=== PATIENT | female | born 1955 | race Two or more races ===

== ENCOUNTER 2018-10-28 14:57 | Inpatient (IN) | payer MEDICARE, MEDICAID ==
[~2018-10-28] VITALS: Ht 157.5 cm; Wt 71.9 kg
--- NOTE | 2018-10-28 15:08 | NUR ---
PT RAD GROSS, EMS REPORTSS THAT SHE WAS AT DIALYSIS AND SHE HAD A BOUGHT OF ALTERED MENTAL STATUS WITH AN O2 SAT IN THE 70S. EMS PLACED 4 L NASAL CANNULA AND PT RETURNED TO NORMAL AND O2 SATS IMPROVED. PT IS COMORAN SPEAKING AND HER DAUGHTER IS AT BEDSIDE TRANSLATING. PT IS VISITING FROM [facility].
--- NOTE | 2018-10-28 15:13 | NUR ---
O2 SATS DROP TO 70% WITHOUT OXYGEN
[2018-10-28] MEDS ORDERED: SODIUM CHLORIDE FLUSH 10ML SYR IVF ONE (15:30)
[2018-10-28 15:59] LABS: BASOPHILS # (AUTO) 0.03 x10^3/uL (0-0.1); BASOPHILS % (AUTO) 0 % (0-1); EOSINOPHILS # (AUTO) 0.11 x10^3/uL (0-0.4); EOSINOPHILS % (AUTO) 2 % (1-7); LYMPHOCYTES # (AUTO) 0.99 x10^3/uL (1-3.4); LYMPHOCYTES % (AUTO) 14 % (22-44); MD NO; MEAN CORPUSCULAR HEMOGLOBIN 31.5 pg (27.0-34.8); MEAN CORPUSCULAR HGB CONC 32.4 g/dL (32.4-35.8); MEAN CORPUSCULAR VOLUME 97.3 fL (80-100); MEAN PLATELET VOLUME 9.3 fL (7.4-10.4); MONOCYTES # (AUTO) 0.54 x10^3/uL (0.2-0.8); MONOCYTES % (AUTO) 8 % (2-9); NEUTROPHILS # (AUTO) 5.57 x10^3/uL (1.8-6.8); NEUTROPHILS % (AUTO) 77 % (42-75); PLATELET COUNT 183 x10^3/uL (130-400); RED BLOOD COUNT 2.89 x10^6/uL (3.82-5.3); RED CELL DISTRIBUTION WIDTH 19.4 % (9.6-15.2)
[2018-10-28] MEDS ORDERED: PLEASE ENTER ALLERGIES MC SCH (16:00)
[2018-10-28 16:07] LABS: ANION GAP 10 mmol/L (5-15); CALCIUM 8.6 mg/dL (8.5-10.1); CHLORIDE 94 mmol/L (98-107); CREATININE 6.61 mg/dL (0.55-1.02)
[2018-10-28] MEDS ORDERED: PREG75CA PO (16:09)
[2018-10-28] MEDS ORDERED: ATOR-2 PO (16:09)
[2018-10-28] MEDS ORDERED: SEVE800T8 PO (16:09)
[2018-10-28] MEDS ORDERED: ASPI-496 PO (16:09)
[2018-10-28] MEDS ORDERED: LEVO50TA5 PO (16:09)
[2018-10-28] MEDS ORDERED: HYDR-3343 PO (16:09)
[2018-10-28] MEDS ORDERED: INSU100C5 SQ-INSULIN (16:09)
[2018-10-28] MEDS ORDERED: CLOP75TA PO (16:09)
[2018-10-28] MEDS ORDERED: METO50TA82 PO (16:09)
[2018-10-28] MEDS ORDERED: SODI650T PO (16:09)
[2018-10-28] MEDS ORDERED: NIFE60TA2 PO (16:09)
[2018-10-28] MEDS ORDERED: INSU100I34 SC (16:10)
--- NOTE | 2018-10-28 16:12 | NUR ---
PT RESTING ON FRANK. PT TO BE ADMITED.
--- NOTE | 2018-10-28 17:33 | NUR ---
REPORT GIVEN TO CHANELL TRUONG
[2018-10-28] MEDS ORDERED: ACETAMINOPHEN 325 MG TABLET PO PRN (18:00)
[2018-10-28 18:57] VITALS: BP 115/66
[2018-10-28 19:23] LABS: HEMOGLOBIN A1C 7.7 % (4.2-6.3)
[2018-10-28] MEDS: INSULIN LISPRO 100 UNITS/ML, PEN SQ-INSULIN SCH ×2 (20:27→21:00)
[2018-10-28] MEDS ORDERED: SODIUM BICARBONATE 650 MG TABLET PO SCH (21:00)
[2018-10-28] MEDS: SEVELAMER CARBONATE 800MG TAB PO SCH (21:00)
[2018-10-28] MEDS ORDERED: PREGABALIN 75 MG CAPSULE PO SCH (21:00)
[2018-10-28] MEDS: ATORVASTATIN 80 MG TABLET PO SCH (21:00)
[2018-10-28] MEDS: METOPROLOL TARTRATE 50 MG TABLET PO SCH (21:00)
[2018-10-29 00:27] VITALS: BP 106/64
[2018-10-29 00:54] LABS: CULTURE INDICATED? YES; MICROSCOPIC INDICATED
[2018-10-29] MEDS ORDERED: HEPARIN 5,000 UNITS/ML, 1ML IV ONE (01:00)
[2018-10-29] MEDS: HEPARIN 25,000 UNITS/500ML PMX 500 ML IV PRN (02:02)
[2018-10-29 05:42] LABS: ALANINE AMINOTRANSFERASE 225 U/L (12-78); ALBUMIN 2.8 g/dL (3.4-5.0); ANION GAP 8 mmol/L (5-15); CALCIUM 8.5 mg/dL (8.5-10.1); CHLORIDE 100 mmol/L (98-107); CREATININE 4.62 mg/dL (0.55-1.02)
[2018-10-29 05:46] LABS: BASOPHILS # (AUTO) 0.03 x10^3/uL (0-0.1); BASOPHILS % (AUTO) 1 % (0-1); EOSINOPHILS # (AUTO) 0.21 x10^3/uL (0-0.4); EOSINOPHILS % (AUTO) 3 % (1-7); LYMPHOCYTES # (AUTO) 0.94 x10^3/uL (1-3.4); LYMPHOCYTES % (AUTO) 14 % (22-44); MD NO; MEAN CORPUSCULAR HEMOGLOBIN 31.5 pg (27.0-34.8); MEAN CORPUSCULAR HGB CONC 32.3 g/dL (32.4-35.8); MEAN CORPUSCULAR VOLUME 97.6 fL (80-100); MEAN PLATELET VOLUME 9.6 fL (7.4-10.4); MONOCYTES # (AUTO) 0.59 x10^3/uL (0.2-0.8); MONOCYTES % (AUTO) 9 % (2-9); NEUTROPHILS # (AUTO) 4.78 x10^3/uL (1.8-6.8); NEUTROPHILS % (AUTO) 73 % (42-75); PLATELET COUNT 192 x10^3/uL (130-400); RED BLOOD COUNT 2.76 x10^6/uL (3.82-5.3); RED CELL DISTRIBUTION WIDTH 19.6 % (9.6-15.2)
[2018-10-29 05:52] LABS: ALKALINE PHOSPHATASE 160 U/L (45-117); BILIRUBIN,TOTAL 0.6 mg/dL (0.2-1.0); THYROID STIMULATING HORMONE 0.534 mIU/L (0.358-3.740); TOTAL PROTEIN 7.4 g/dL (6.4-8.2)
[2018-10-29] MEDS: INSULIN LISPRO 100 UNITS/ML, PEN SQ-INSULIN SCH ×4 (07:00→21:09)
[2018-10-29 09:00] VITALS: BP 146/61
[2018-10-29] MEDS: SEVELAMER CARBONATE 800MG TAB PO SCH ×3 (09:00→21:08)
[2018-10-29] MEDS: METOPROLOL TARTRATE 50 MG TABLET PO SCH ×2 (09:00→21:09)
[2018-10-29] MEDS: CLOPIDOGREL 75 MG TABLET PO SCH (09:00)
[2018-10-29] MEDS: HEPARIN 5,000 UNITS/ML, 1ML IV PRN ×3 (09:30→22:58)
[2018-10-29 11:20] VITALS: BP 104/62
[2018-10-29] MEDS: LEVOTHYROXINE 50 MCG TABLET PO SCH (12:30)
[2018-10-29] MEDS: niFEDipine ER 60 MG TABLET.ER PO SCH (12:30)
[2018-10-29] MEDS: ASPIRIN 81 MG TABLET EC PO SCH (12:30)
[2018-10-29] MEDS: PREGABALIN 75 MG CAPSULE PO SCH (12:30)
[2018-10-29 13:10] VITALS: BP 127/70
[2018-10-29] MEDS: CEFTRIAXONE PMX 1GM/50ML 50 ML IV SCH (13:26)
[2018-10-29 19:23] VITALS: BP 114/65
[2018-10-29] MEDS: ATORVASTATIN 80 MG TABLET PO SCH (21:08)
[2018-10-30 00:34] VITALS: BP 110/80
[2018-10-30 05:53] LABS: MEAN CORPUSCULAR HEMOGLOBIN 31.9 pg (27.0-34.8); MEAN CORPUSCULAR HGB CONC 32.7 g/dL (32.4-35.8); MEAN CORPUSCULAR VOLUME 97.7 fL (80-100); MEAN PLATELET VOLUME 9.2 fL (7.4-10.4); PLATELET COUNT 241 x10^3/uL (130-400); RED BLOOD COUNT 2.93 x10^6/uL (3.82-5.3); RED CELL DISTRIBUTION WIDTH 20.4 % (9.6-15.2)
[2018-10-30 06:02] LABS: ALBUMIN 2.7 g/dL (3.4-5.0); ANION GAP 11 mmol/L (5-15); CALCIUM 8.7 mg/dL (8.5-10.1); CHLORIDE 96 mmol/L (98-107)
[2018-10-30 06:03] LABS: CREATININE 5.24 mg/dL (0.55-1.02)
[2018-10-30] MEDS: HEPARIN 5,000 UNITS/ML, 1ML IV PRN ×2 (06:15→13:23)
[2018-10-30] MEDS: LEVOTHYROXINE 50 MCG TABLET PO SCH (06:15)
[2018-10-30] MEDS: HEPARIN 25,000 UNITS/500ML PMX 500 ML IV PRN (06:17)
[2018-10-30 06:37] LABS: ANISOCYTOSIS 1+; BASOPHILS # (AUTO) 0.03 x10^3/uL (0-0.1); BASOPHILS % (AUTO) 0 % (0-1); EOSINOPHILS # (AUTO) 0.26 x10^3/uL (0-0.4); EOSINOPHILS % (AUTO) 4 % (1-7); LYMPHOCYTES % (AUTO) 16 % (22-44); MD MORPH REVIEW ONLY; MONOCYTES # (AUTO) 0.66 x10^3/uL (0.2-0.8); MONOCYTES % (AUTO) 10 % (2-9); NEUTROPHILS # (AUTO) 4.78 x10^3/uL (1.8-6.8); NEUTROPHILS % (AUTO) 70 % (42-75); POLYCHROMASIA 1+
[2018-10-30 06:39] LABS: <PLATELET ESTIMATE> ADEQUATE; <PLT MORPHOLOGY> NORMAL PLT MORPH
[2018-10-30 08:27] VITALS: BP 106/63
[2018-10-30] MEDS: INSULIN LISPRO 100 UNITS/ML, PEN SQ-INSULIN SCH ×4 (08:30→20:33)
[2018-10-30] MEDS: METOPROLOL TARTRATE 50 MG TABLET PO SCH ×2 (08:58→20:29)
[2018-10-30] MEDS: ASPIRIN 81 MG TABLET EC PO SCH (08:58)
[2018-10-30] MEDS: niFEDipine ER 60 MG TABLET.ER PO SCH (08:58)
[2018-10-30] MEDS: PREGABALIN 75 MG CAPSULE PO SCH (08:58)
[2018-10-30] MEDS: SEVELAMER CARBONATE 800MG TAB PO SCH ×2 (08:58→16:59)
[2018-10-30] MEDS: CLOPIDOGREL 75 MG TABLET PO SCH (08:58)
[2018-10-30] MEDS: CEFTRIAXONE PMX 1GM/50ML 50 ML IV SCH (11:30)
[2018-10-30 12:50] VITALS: BP 101/58
[2018-10-30 19:19] VITALS: BP 109/55
[2018-10-30] MEDS: ATORVASTATIN 80 MG TABLET PO SCH (20:29)
[2018-10-31 01:09] VITALS: BP 128/68
[2018-10-31] MEDS: HEPARIN 5,000 UNITS/ML, 1ML IV PRN (03:05)
[2018-10-31] MEDS: HEPARIN 25,000 UNITS/500ML PMX 500 ML IV PRN (03:11)
[2018-10-31] MEDS: LEVOTHYROXINE 50 MCG TABLET PO SCH (05:57)
[2018-10-31 07:20] VITALS: BP 133/64
[2018-10-31] MEDS: INSULIN LISPRO 100 UNITS/ML, PEN SQ-INSULIN SCH ×2 (08:25→11:46)
[2018-10-31] MEDS: PREGABALIN 75 MG CAPSULE PO SCH (08:25)
[2018-10-31] MEDS: SEVELAMER CARBONATE 800MG TAB PO SCH ×2 (08:25→11:46)
[2018-10-31] MEDS: ASPIRIN 81 MG TABLET EC PO SCH (08:26)
[2018-10-31] MEDS: CLOPIDOGREL 75 MG TABLET PO SCH (08:26)
[2018-10-31] MEDS: METOPROLOL TARTRATE 50 MG TABLET PO SCH (08:26)
[2018-10-31] MEDS: niFEDipine ER 60 MG TABLET.ER PO SCH (09:27)
[2018-10-31] MEDS: CEFTRIAXONE PMX 1GM/50ML 50 ML IV SCH (11:30)
[2018-10-31] MEDS ORDERED: CEFD300C37 PO (11:42)
[2018-10-31] MEDS ORDERED: PREG75CA PO (11:42)
[2018-10-31] MEDS ORDERED: DOXY100T PO (11:42)
[2018-10-31 13:27] VITALS: BP 151/66
== END 2018-10-31 16:00 | disposition home or self-care (01) | DRG 280 ==
LOC: ED 16:21 → EDIP 17:06 → 4EST 18:41 → DCLOUNGE 10-31 15:54
PROVIDERS: ADMIT Internal Medicine; ATTEND Internal Medicine
PROC: 5A1D70Z Performance of Urinary Filtration, Intermittent, Less than 6 Hours Per Day (ICD-10-PCS; principal; 2018-10-28)
PROC: 5A1D70Z Performance of Urinary Filtration, Intermittent, Less than 6 Hours Per Day (ICD-10-PCS; 2018-10-29)
DX: I21.A1 Myocardial infarction type 2 (principal); J96.01 Acute respiratory failure with hypoxia; N18.6 End stage renal disease; J18.9 Pneumonia, unspecified organism; I13.2 Hypertensive heart and chronic kidney disease with heart failure and with stage 5 chronic kidney disease, or end stage renal disease; E46 Unspecified protein-calorie malnutrition; E87.3 Alkalosis; N39.0 Urinary tract infection, site not specified; B96.20 Unspecified Escherichia coli [E. coli] as the cause of diseases classified elsewhere; D63.8 Anemia in other chronic diseases classified elsewhere; E03.9 Hypothyroidism, unspecified; E11.21 Type 2 diabetes mellitus with diabetic nephropathy; E11.22 Type 2 diabetes mellitus with diabetic chronic kidney disease; Z96.659 Presence of unspecified artificial knee joint; J40 Bronchitis, not specified as acute or chronic; Z68.29 Body mass index [BMI] 29.0-29.9, adult; I25.10 Atherosclerotic heart disease of native coronary artery without angina pectoris; N25.0 Renal osteodystrophy; Z79.02 Long term (current) use of antithrombotics/antiplatelets; Z79.82 Long term (current) use of aspirin; Z90.710 Acquired absence of both cervix and uterus; Z95.5 Presence of coronary angioplasty implant and graft; Z99.2 Dependence on renal dialysis; Z90.49 Acquired absence of other specified parts of digestive tract; Z88.2 Allergy status to sulfonamides; Z88.8 Allergy status to other drugs, medicaments and biological substances; I50.9 Heart failure, unspecified
CPT/HCPCS: 36415; 71045; 78582; 80048; 80053; 80069; 81001; 82040; 82962; 83036; 83735; 84443; 84484; 85025; 85379; 85520; 87077; 87086; 87147; 87186; 90935; 93005; 93306; 93970; G0378; J0696; J1644; A9540; A9558; C9898; J1815